=== PATIENT | male | born 1960 | race Two or more races ===

== ENCOUNTER 2017-06-02 22:07 | Emergency (ER) | payer MEDICAID ==
[~2017-06-02] VITALS: Ht 165.1 cm; Wt 72.6 kg
[2017-06-02] MEDS ORDERED: NKM (22:14)
[2017-06-02 22:30] VITALS: BP 112/67
[2017-06-02] MEDS ORDERED: Dexamethasone 4mg/ml vial IM ONE (22:30)
[2017-06-02] MEDS ORDERED: EPINEPHrine 1mg/1ml Amp IM ONE (22:30)
[2017-06-02 23:30] VITALS: BP 117/67
--- NOTE | 2017-06-02 23:51 | Emergency Room Report ---
History of Present Illness General Chief Complaint: Allergic Reaction Source: Patient Present Illness HPI Patient has had itching and skin rash for 1 week. Has had in past but not as severe. Worsened with taking shower. No medications taken. No throat swelling , trouble breathing or swallowing. No NVD. No fevers. This is one of the worst episodes of skin rash he has had. No weakness or dizziness. 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 No new soaps, unusual foods. No chest pain, palpitations, NVD, dysuria. Denies polies and DM. No anxiety. 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 Reviewed Nursing Documentation: PMH: Agreed; PSxH: Agreed Nursing Documentation-PMH Past Medical History: No Stated History Review of Systems All Other Systems: negative except mentioned in HPI Physical Exam Vital Signs Date Time Temp Pulse Resp B/P (MAP) Pulse Ox O2 Delivery O2 Flow Rate FiO2 06/02/17 22:11 97.8 62 15 110/66 96 Room Air 97.9 Sp02 EP Interpretation: reviewed, normal General Appearance: well appearing, no apparent distress, GCS 15 Head: normocephalic Eyes: bilateral eye normal inspection, bilateral eye PERRL ENT: normal pharynx, no angioedema, moist mucus membranes Neck: supple Respiratory: lungs clear, normal breath sounds Cardiovascular #1: regular rate, rhythm Cardiovascular #2: 2+ radial (R) Gastrointestinal: normal inspection, normal bowel sounds, non tender, no mass, non-distended Musculoskeletal: back normal, gait/station normal, normal range of motion Neurologic: alert, oriented x3, grossly normal Psychiatric: mood/affect normal Skin: rash - wheel flare, throughout Medical Decision Making Diagnostic Impression: Primary Impression: Allergic reaction Qualified Codes: T78.40XA - Allergy, unspecified, initial encounter Additional Impression: Hives ER Course Patient presents with generalized wheel flare reaction. DDx: allergy: food, environmental - trees, soaps - anxiety amongst others. No evidence of anaphylaxis. Patient will be treated with IM epi, decadron, benadryl. No labs indicated. No mucous membrane involvement. The fact it is fairly generalized suggests ingestion or exposure to body. Not toxic or in distress. Patient greatly improved with treatment. Discussed need to investigate and record what might make rash. Also need to see MD. Patient stable for outpatient observation and treatment. Rhythm Strip Diag. Results Rhythm: NSR, no PVC's, no ectopy Last Vital Signs Date Time Temp Pulse Resp B/P (MAP) Pulse Ox O2 Delivery O2 Flow Rate FiO2 06/03/17 00:15 98.1 82 16 117/67 98 Room Air 98.1 Status: improved Disposition: HOME, SELF-CARE Condition: Improved Scripts Diphenhydramine Hcl* (BENADRYL*) 25 Mg Capsule 25 MG ORAL Q6H PRN for Itching, #20 CAP Prov: Kaz Manuel M.D. 06/02/17 Prednisone* (PREDNISONE*) 20 Mg Tablet 40 MG ORAL DAILY, #5 TAB Prov: Kaz Manuel M.D. 06/02/17 Referrals: NON PHYSICIAN (PCP) Kaz Manuel M.D. Jun 02, 2017 23:51
[2017-06-02] MEDS ORDERED: PREDNISONE20 MG ORAL (23:53)
[2017-06-02] MEDS ORDERED: BENADRYL25 MG ORAL (23:53)
[2017-06-03 00:15] VITALS: BP 117/67
== END 2017-06-03 00:15 | disposition home or self-care (01) ==
LOC: EMR 22:20
DX: L50.0 Allergic urticaria (principal)
CPT/HCPCS: 96372; 99283; J0171; J1100

== ENCOUNTER 2017-06-12 18:48 | Emergency (ER) | payer MEDICAID ==
[~2017-06-12] VITALS: Ht 170.2 cm; Wt 77.1 kg
[~2017-06-12 18:48] MED LIST: BENADRYL25 MG ORAL; NKM; PREDNISONE20 MG ORAL
[2017-06-12] MEDS ORDERED: Solu-MEDROL 125mg Inj IM ONE (19:15)
[2017-06-12 19:20] VITALS: BP 130/84
[2017-06-12] MEDS ORDERED: DiphenhydrAMINE 50mg/ml Inj IM ONE (19:30)
--- NOTE | 2017-06-12 21:01 | Emergency Room Report ---
History of Present Illness General Chief Complaint: General Complaint Source: Patient Present Illness HPI 56-year-old male presents to the emergency department complaining of itchy, swollen rash to the right side of his face in addition to hives on his abdomen and back. Patient states his symptoms of been progressive since Sunday evening. reports swelling of the right lower lip. Patient reports previous history of similar allergy lacerations in the past. Denies lesions/rashes elsewhere on the body. Denies new medications or body washes or creams. Denies swelling of the tongue , throat or airway. Denies wheezing, or shortness of breath. Denies recent travel, recent illness or ill contacts. denies blisters , oral lesions, or sloughing of the skin. Allergies: Coded Allergies: NO KNOWN DRUG ALLERGIES (Verified Allergy, Unknown, 06/02/17) Patient History Past Medical History: see triage record Past Surgical History: none Pertinent Family History: none Immunizations: UTD Reviewed Nursing Documentation: PMH: Agreed; PSxH: Agreed Nursing Documentation-PMH Past Medical History: No Stated History Review of Systems All Other Systems: negative except mentioned in HPI Physical Exam Vital Signs Date Time Temp Pulse Resp B/P (MAP) Pulse Ox O2 Delivery O2 Flow Rate FiO2 06/12/17 19:05 97.8 55 19 133/82 97 Room Air 97.9 Sp02 EP Interpretation: reviewed, normal General Appearance: no apparent distress, alert, GCS 15, non-toxic Head: normocephalic, atraumatic Eyes: bilateral eye normal inspection, bilateral eye PERRL ENT: hearing grossly normal, normal pharynx, normal voice, moist mucus membranes, other - No stridor, mild swelling to the right side of the lower lip no swelling of the tongue. Neck: full range of motion Respiratory: chest non-tender, lungs clear, normal breath sounds, no rhonchi, no respiratory distress, no wheezing, speaking full sentences Cardiovascular #1: regular rate, rhythm, no edema Gastrointestinal: other - Urticarial rash to the anterior abdomen Musculoskeletal: back normal, gait/station normal, normal range of motion, non- tender Neurologic: alert, oriented x3, responsive, motor strength/tone normal, sensory intact, normal gait, speech normal, grossly normal Psychiatric: judgement/insight normal Skin: normal color, warm/dry, well hydrated, rash - Generalized urticarial plaques to the torso both anterior and posteriorly, right side of the neck. No vesicles, Alonzo's or evidence of secondary infection. Lymphatic: no adenopathy Medical Decision Making PA Attestation Dr. Phipps is my supervising Physician whom patient management has been discussed with. Diagnostic Impression: Primary Impression: Allergic reaction Qualified Codes: T78.40XA - Allergy, unspecified, initial encounter Additional Impression: Hives ER Course 56-year-old male presents to the emergency department complaining of itchy, swollen rash to the right side of his face in addition to hives on his abdomen and back. Patient states his symptoms of been progressive since Sunday evening. reports swelling of the right lower lip. Patient reports previous history of similar allergy lacerations in the past. Denies lesions/rashes elsewhere on the body. Denies new medications or body washes or creams. Denies swelling of the tongue , throat or airway. Denies wheezing, or shortness of breath. Denies recent travel, recent illness or ill contacts. denies blisters , oral lesions, or sloughing of the skin. Patient denies history of high blood pressure he states he does not take medications regularly. Ddx considered but are not limited to cellulitis, allergic reaction, angio edema , abscess Vital signs: are WNL, pt. is afebrile H&PE are most consistent with allergic reaction - Patient has moderate urticaria on the torso. Some plaques on the right side of his neck and swelling of the right lower lip. No swelling of the tongue is no stridor no wheezing. Patient appears in no acute distress spite the symptoms. Since patient symptoms have been going on since Sunday and there has been no rapid progression during ED visit I feel that this patient does not have signs of impending airway compromise at the moment. ORDERS: none required at this time, the diagnosis is clinical ED INTERVENTIONS: -IM solumedrol -IM Benadryl Upon reevaluation patient reports that his symptoms have resolved. His rash has resolved for the most part however his right-sided lower lip continues to remain somewhat swollen. No evidence of progression. I discussed with this patient that he will be discharged with medications to manage his symptoms however he was given strict return to ED precautions with worsening or new symptoms. Discussed with patient that he will be discharged with a EpiPen, how and when to use it and that if this is the case he will require emergent evaluation in the ED. Discussed the patient if symptoms improve he needs to follow-up with his primary care provider. DISCHARGE: At this time pt. is stable for d/c to home. Will provide printed patient care instructions, and any necessary prescriptions. Care plan and follow up instructions have been discussed with the patient prior to discharge. Last Vital Signs Date Time Temp Pulse Resp B/P (MAP) Pulse Ox O2 Delivery O2 Flow Rate FiO2 06/12/17 19:20 61 17 130/84 98 Room Air 06/12/17 19:05 97.8 97.9 Disposition: HOME, SELF-CARE Condition: Stable Scripts Epinephrine (Epipen 2-Bridger) 0.3 Mg/0.3 Ml Auto.injct 0.3 MG IM PRN, #2 EA Prov: Meghan Ortiz 06/12/17 Hydrocortisone (Hydrocortisone Cream 2.5%) Y Cream.appl 1 APPLIC TP BID, #28.3 GM Prov: Meghan Ortiz 06/12/17 Prednisone* (PREDNISONE*) 20 Mg Tablet 40 MG ORAL DAILY for 5 Days, #10 TAB Prov: Meghan Ortiz 06/12/17 Diphenhydramine Hcl* (BENADRYL*) 25 Mg Capsule 25 MG ORAL Q6H PRN for Itching, #30 CAP Prov: Meghan Ortiz 06/12/17 Referrals: NOT CHOSEN IPA/MD,REFERRING (PCP) Patient Instructions: Allergies, Angioedema, [id number] Additional Instructions: Take medications as directed. Follow up with a Primary Care Provider in 3-5 days, even if your symptoms have resolved. --Please review list of primary care clinics, if you do not already have a primary care provider Return sooner to ED if new symptoms occur, or current symptoms become worse. Do not drink alcohol, drive, or operate heavy machinery while taking Benadryl as this may cause drowsiness. - Please note that this Emergency Department Report was dictated using [employer] procurement coordinator technology software, occasionally this can lead to erroneous entry secondary to interpretation by the dictation equipment. Meghan Ortiz June 12, 2017 21:01
[2017-06-12] MEDS ORDERED: HYDROCORTISONE30 G2 TP (21:02)
[2017-06-12] MEDS ORDERED: BENADRYL25 MG ORAL (21:02)
[2017-06-12] MEDS ORDERED: PREDNISONE20 MG ORAL (21:02)
[2017-06-12] MEDS ORDERED: EPIPEN 2-P0.3 MG/0.3 IM (21:06)
[2017-06-12 21:20] VITALS: BP 128/82
[2017-06-12 21:25] VITALS: BP 128/82
== END 2017-06-12 21:25 | disposition home or self-care (01) ==
LOC: EMR 20:13
DX: T78.40XA Allergy, unspecified, initial encounter (principal); X58.XXXA Exposure to other specified factors, initial encounter; L50.9 Urticaria, unspecified
CPT/HCPCS: 96372; 99284; J1200; J2930